=== PATIENT | female | born 1935 | race Caucasian/White ===

== ENCOUNTER 2018-10-30 14:58 | Emergency (ER) | payer MEDICARE, MEDICAID ==
[~2018-10-30] VITALS: Ht 160 cm; Wt 72.6 kg
[~2018-10-30 14:58] MED LIST: AMLO5TAB9 PO; CELE200C PO; ESCI10TA PO; IBUP1TAB68 PO; VALS1TAB8 PO
[2018-10-30] MEDS ORDERED: OLME1TAB19 PO (15:10)
[2018-10-30] MEDS ORDERED: DOXA2TAB2 PO (15:10)
[2018-10-30] MEDS ORDERED: ROSU5TAB PO (15:10)
[2018-10-30] MEDS ORDERED: MELO-105 PO (15:10)
[2018-10-30] MEDS ORDERED: ASPI81TA31 PO (15:10)
[2018-10-30 15:27] LABS: BASOPHILS % (AUTO) 0.4 % (0.0-2.0); EOSINOPHILS % (AUTO) 0.3 % (0.0-7.0); HEMATOCRIT 37.4 % (31.2-41.9); HEMOGLOBIN 12.5 g/dL (10.9-14.3); LYMPHOCYTES # (AUTO) 1.1 K/uL (20.0-40.0); MEAN CORPUSCULAR HEMOGLOBIN 30.9 uug (24.7-32.8); MEAN CORPUSCULAR HGB CONC 34 g/dL (32.3-35.6); MEAN CORPUSCULAR VOLUME 92.2 fL (75.5-95.3); MONOCYTES # (AUTO) 0.3 K/uL (2.0-10.0); MONOCYTES % (AUTO) 4.7 % (0.0-11.0); NEUTROPHILS # (AUTO) 4.9 K/uL (1.8-8.9); NEUTROPHILS % (AUTO) 76.6 % (38.5-71.5); PLATELET COUNT (AUTO) 212 K/uL (179-408); RED BLOOD CELL COUNT(AUTO) 4.05 MIL/uL (3.63-4.92); WHITE BLOOD COUNT (AUTO) 6.3 K/uL (3.8-11.8)
[2018-10-30] MEDS ORDERED: MAG HYDROX/AL HYDROX/SIMETH 30 ML LIQUID UDC PO ONE (15:30)
[2018-10-30] MEDS ORDERED: FAMOTIDINE. 20 MG/2 ML VIAL IV ONE ×3 (15:30→16:00)
[2018-10-30 15:35] LABS: CARBON DIOXIDE 27 mmol/L (21-32); CHLORIDE 100 mmol/L (98-107); CREATININE 0.8 mg/dL (0.6-1.3); GLUCOSE 143 mg/dL (74-106); POTASSIUM 3.5 mmol/L (3.5-5.1); UREA NITROGEN, BLOOD 17 mg/dL (7-18)
[2018-10-30] MEDS ORDERED: MAG HYDROX/AL HYDROX/SIMETH 30 ML LIQUID UDC ONE ×2 (15:35→15:59)
[2018-10-30 15:39] LABS: ALANINE AMINOTRANSFERASE 20 U/L (14-59); ALKALINE PHOSPHATASE 79 U/L (50-136); ASPARTATE AMINOTRANSFERASE 18 U/L (15-37); BILIRUBIN,DIRECT 0.1 mg/dL (0.0-0.2); BILIRUBIN,TOTAL 0.4 mg/dL (0.2-1.0); LIPASE 95 U/L (73-393); TOTAL PROTEIN, SERUM 7.6 g/dL (6.4-8.2)
--- NOTE | 2018-10-30 17:03 | NUR ---
Patient discharged to home in stable conditon. Written and verbal after care instructions given. Patient verbalizes understanding of instructions.PT WALKS IN STADY GAIT. PT SAYS FEELS BETTER. PAIN SUB SIDED. PT IS READY TO GO HOME. COPY OF ALL THE IMAGES PROVIDED FOR PT TO FOLLOW UP. PT ACCOMPANIED BY SISTER.
[2018-10-30 17:17] VITALS: BP 131/69
== END 2018-10-30 17:03 | disposition home or self-care (01) ==
LOC: ER 14:58
DX: R10.13 Epigastric pain (principal); I45.10 Unspecified right bundle-branch block; R11.0 Nausea; I10 Essential (primary) hypertension; Z79.82 Long term (current) use of aspirin; Z79.899 Other long term (current) drug therapy; Z79.1 Long term (current) use of non-steroidal anti-inflammatories (NSAID)
CPT/HCPCS: 36415; 74176; 80048; 80076; 83605; 83690; 84484; 85025; 85730; 93005; 96374; 99284; J3490; 70030-TC; A4663